=== PATIENT | female | born 1960 | race Caucasian/White ===

== ENCOUNTER 2016-07-05 07:24 | Day surgery (SDC) | payer BC ==
--- NOTE | ~2016-07-05 | OP ---
Record Of Operation [facility] [address] [place]. [address] NAME: PINEDA ISABEL : 56 STATUS : [facility]#: [id number] AGE: 56 ADM/REG DATE : 07/05/16 MR#: [id number] REPORT SERV DATE: 07/05/16 DICTATED BY: COLLEEN FRANCIS JR. DATE: 07/05/16 REPORT STATUS : Draft TRANSCRIBED BY: MODMoe DATE: 07/05/16 DATE OF PROCEDURE: REASON FOR SURGERY: This 56-year-old patient presents for breast preservation therapy on the left side. The rationale for surgery is as outlined in the earlier office notes. She has been counseled extensively and has undergone presentation at the weekly breast conference. PREOPERATIVE DIAGNOSIS: Carcinoma of the left breast. POSTOPERATIVE DIAGNOSIS: Carcinoma of the left breast. SURGEON: Colleen Francis M.D. SURGERY PERFORMED: [place] node localization followed by left breast segmentectomy and sentinel node removal. DESCRIPTION OF PROCEDURE: The patient was initially injected in the nuclear medicine facility. She was taken to the operating room, and under general anesthesia, she was prepped and draped in supine position in the usual sterile fashion. A curvilinear incision was made over the previously ultrasound localized site in the upper inner quadrant. Vertical dissection was carried down into the fatty tissue, and a 3- dimensional excision was performed keeping the now palpable nodule center most within the specimen. This 3.5 cm sphere of tissue was removed and oriented for pathology. Initial sectioning revealed adequate margins throughout, although the superficial margin was known to be somewhat close. This tumor was in the sulcus medially and in a fatty replaced breasts, and there was only fatty tissue on the surface remaining. Superficial margins that were close were acceptable under guidelines. The wound was irrigated, and hemostasis was obtained. The wound was closed with two layers of Monocryl. Attention was turned to the left axilla. With direction with the Gamma probe, a small curvilinear incision was made and vertical dissection was carried down to singly active hot spot. A bilobed lymph node was removed with recording and background count as logged in the surgical log book. The wound was irrigated and hemostasis was obtained. The wound was closed with two layers of Monocryl. The patient tolerated the procedure well without complications. ESTIMATED BLOOD LOSS: Less than 10 mL. SPONGE COUNT: Correct. MR/MODL Record Of [place] [address] [place]. [address] NAME: PINEDA ISABEL : 56 STATUS : REG [facility] PAT#: [id number] AGE: 56 ADM/REG DATE : 07/05/16 MR#: [id number] REPORT SERV DATE: 07/05/16 DICTATED BY: COLLEEN FRANCIS JR. DATE: 07/05/16 REPORT STATUS : Draft TRANSCRIBED BY: SCOTT DATE: 07/05/16 Colleen Francis Jr., M.D. / [id number] CC: Nicolas Palmer Jr., M.D. James Bolton, M.D. [facility]
[~2016-07-05 07:24] MED LIST: ADVIL PO; BEN25 PO; IMITREX100 MG PO; NORITATE1% TOP; SYN.15 PO
== END 2016-07-05 14:26 | disposition home or self-care (01) ==
LOC: SDC 07:24
PROVIDERS: Surgery Surgical Oncology
PROC: 07B60ZX Excision of Left Axillary Lymphatic, Open Approach, Diagnostic (ICD-10-PCS; 2016-07-05)
PROC: BH41ZZZ Ultrasonography of Left Breast (ICD-10-PCS; 2016-07-05)
PROC: 0HBU0ZX Excision of Left Breast, Open Approach, Diagnostic (ICD-10-PCS; principal; 2016-07-05 10:45)
DX: C50.912 Malignant neoplasm of unspecified site of left female breast (principal); G43.909 Migraine, unspecified, not intractable, without status migrainosus; Z79.1 Long term (current) use of non-steroidal anti-inflammatories (NSAID); Z79.899 Other long term (current) drug therapy; Z98.890 Other specified postprocedural states
CPT/HCPCS: 71020; 78195; 80053; 85025; 88307; 88342; 93005; A9270-GY; A9541; J0690; J2250; J2270; J2405; J3010